=== PATIENT | male | born 1985 | race Caucasian/White ===

== ENCOUNTER 2017-12-29 22:50 | Emergency (ER) | payer OTHER ==
[2017-12-30] MEDS: DIPHTH/TET/ACEL PERTUSS (ADULT) 0.5 ML VIAL IM* (00:56)
[2017-12-30] MEDS: IBUPROFEN 600 MG TAB PO (00:58)
== END 2017-12-30 02:15 | disposition home or self-care (01) ==
LOC: FTE 22:50
DX: H53.8 Other visual disturbances (principal); H02.816 Retained foreign body in left eye, unspecified eyelid; Z18.9 Retained foreign body fragments, unspecified material; Z23 Encounter for immunization
CPT/HCPCS: 90471; 90715; 99283-25